=== PATIENT | female | born 1985 | race Caucasian/White ===

== ENCOUNTER 2017-04-22 13:49 | Inpatient (IN) | payer BC ==
[2017-04-22] MEDS ORDERED: Ondansetron 4 MG/2 ML SDV IVPUSH PRN (14:22)
[2017-04-22] MEDS ORDERED: Sodium Chloride 0.9% 10 ML Syringe FLUSH PRN (14:22)
[2017-04-22] MEDS ORDERED: Lactated Ringers 1,000 ML IV SCH (14:30)
[2017-04-22] MEDS ORDERED: Oxytocin/Lactated Ringers 10 UNIT/1,000 ML BAG IV SCH ×2 (14:30→21:30)
[2017-04-22] MEDS ORDERED: ceFAZolin 2 GM in Premix Bag 1 BAG IV ONE (14:30)
--- NOTE | 2017-04-22 14:42 | PCM.LDHP ---
L&D History of Present Illness - General Date of Service: 04/22/17 Admit Problem/Dx: Patient Status Order with Admit Dx/Problem 04/22/17 14:22 Patient Status [ADT] Routine Admission Diagnosis/Problem Admission Diagnosis/Problem Normal Source of Information: Patient History Limitations: Reports: No Limitations - History of Present Illness Introduction:: Patient is a 32 y/o at 39 6/7 wks who presents for SROM. States that at 1130 this morning she had gross ROM. Fluid was clear. Mild contractions since that time. No other issues or concerns. - Related Data Allergies/Adverse Reactions: Allergies Allergy/AdvReac Type Severity Reaction Status Date / Time Penicillins Allergy Intermediate Rash Verified 07/31/14 10:09 Home Medications: Home Meds Cmb#95/Iron/FA/DHA [ + Dha Combo Pack] 1 each PO DAILY [History] Acetaminophen [Tylenol] 650 mg PO Q6H PRN #50 tablet 08/02/14 [Rx] Benzocaine/Menthol [Dermoplast Pain Relief [place]] 1 spray TOP ASDIRECTED PRN #1 canister 08/02/14 [Rx] Ibuprofen [Motrin] 200 - 800 mg PO Q6H PRN #50 tablet 08/02/14 [Rx] Lanolin [Lansinoh HPA] 1 applic TOP ASDIRECTED PRN #1 crm 08/02/14 [Rx] Witch Trinh [Tucks] 1 pad TOP ASDIRECTED PRN #50 pad 08/02/14 [Rx] Past Medical History SHANK RANDER History: Reports: : 3 Para: 2 LMP (Approximate): Other OB/BYN History: First with failed forceps requiring . Second with successful - Past Surgical History Female Surgical History: Reports: Section Social & Family History - Tobacco Use Smoking Status *Q: Never Smoker Second Hand Smoke Exposure: No - Alcohol Use Alcohol Use History: No Days Per Week of Alcohol Use: 0 - Recreational Drug Use Recreational Drug Use: No H&P Review of Systems - Review of Systems: Review Of Systems: See Below General: Reports: No Symptoms Pulmonary: Reports: No Symptoms Cardiovascular: Reports: No Symptoms Gastrointestinal: Reports: No Symptoms Genitourinary: Reports: No Symptoms Musculoskeletal: Reports: No Symptoms L&D Exam - Exam Exam: See Below - OB Specific Contraction Intensity: Mild to Moderate Movement: Active Heart Tones: Present Heart Tones per Min: 130 Heart Rate (FHR) Variability: Moderate (6-25 bmp) Presentation: Vertex - Greenberg Score Greenberg Score Cervix Position: Posterior Greenberg Score Consistency: Soft Greenberg Score Effacement: >80% Greenberg Score Dilation: 3-4 cm Greenberg Score 's Station: -1 ,0 Greenberg Score Total: 9 - Exam General: Alert, Oriented, Cooperative Lungs: Clear to Auscultation, Normal Respiratory Effort Cardiovascular: Regular Rate, Regular Rhythm Abdomen: Soft Genitourinary: Normal external exam Extremities: Normal Inspection Skin: Warm, Dry, Intact - Problem List (1) Previous section SNOMED Code(s): 986035733 ICD Code: Z98.89 - OTHER SPECIFIED POSTPROCEDURAL STATES * DO NOT USE * Status: Acute Current Visit: No (2) SROM (spontaneous rupture of membranes) SNOMED Code(s): 070465134 ICD Code: [id number] - Status: Acute Current Visit: Yes (3) Desires (vaginal after ) trial SNOMED Code(s): 148995754, 202347918 ICD Code: O34.219 - MATERNAL CARE FOR UNSP TYPE SCAR FROM PREVIOUS DEL Status: Acute Current Visit: Yes (4) Hx successful (vaginal after ), currently SNOMED Code(s): 262454188, 602710959, 682383611 ICD Code: O34.219 - MATERNAL CARE FOR UNSP TYPE SCAR FROM PREVIOUS DEL Status: Acute Current Visit: Yes (5) GBS (group B Streptococcus carrier), +RV culture, currently SNOMED Code(s): 15879577, 739770284 ICD Code: O99.820 - STREPTOCOCCUS B CARRIER STATE COMPLICATING Status: Acute Current Visit: Yes Problem List Initiated/Reviewed/Updated: Yes Orders Last 24hrs: Active Orders 24 hr Category Date Time Status Patient Status [ADT] Routine ADT 04/22/17 14:22 Ordered Activity as Tolerated [RC] PFP Care 04/22/17 14:22 Ordered Communication Order [RC] ASDIRECTED Care 04/22/17 14:22 Ordered Heart Tones [RC] ASDIRECTED Care 04/22/17 14:22 Ordered Notify Provider [RC] PFP Care 04/22/17 14:22 Ordered Notify Provider [RC] PRN Care 04/22/17 14:22 Ordered Peripheral IV Care [RC] . DIRECTED Care 04/22/17 14:22 Ordered Vital Signs [RC] PER UNIT ROUTINE Care 04/22/17 14:22 Ordered Regular Diet [DIET] Diet 04/22/17 Lunch Ordered CBC W/O DIFF,HEMOGRAM [HEME] Routine Lab 04/22/17 14:22 Ordered TYPE AND SCREEN [BBK] Routine Lab 04/22/17 14:22 Ordered Lactated Ringers [Ringers, Lactated] 1,000 ml Med 04/22/17 14:30 Ordered IV ASDIRECTED Ondansetron [Zofran] Med 04/22/17 14:22 Ordered 4 mg IVPUSH Q4H PRN Oxytocin/Lactated Ringers [Pitocin in LR 10 Units/1,000 Med 04/22/17 14:30 Ordered ML] 10 unit in 1,000 ml IV TITRATE Sodium Chloride 0.9% [Saline Flush] Med 04/22/17 14:22 Ordered 10 ml FLUSH ASDIRECTED PRN ceFAZolin [Ancef] 1 gm Med 04/22/17 22:00 Ordered Premix Bag 1 bag IV Q8HR ceFAZolin [Ancef] 2 gm Med 04/22/17 14:22 Ordered Premix Bag 1 bag IV ONETIME Electronic Heart Tones Ext w TOCO [WOMSER] Oth 04/22/17 14:22 Ordered Routine Electronic Heart Tones Internal [WOMSER] Per Unit Oth 04/22/17 14:22 Ordered Routine Peripheral IV Insertion Adult [OM.PC] Routine Oth 04/22/17 14:22 Ordered Resuscitation Status Routine Resus Stat 04/22/17 14:22 Ordered Medication Orders Lactated Ringer's (Ringers, Lactated) 1,000 mls @ 40 mls/hr IV ASDIRECTED DEBBY Oxytocin/Lactated Ringer's (Pitocin In Lr 10 Units/1,000 Ml) 10 unit in 1,000 mls @ 500 mls/hr IV TITRATE DEBBY PRN Reason: Protocol Cefazolin Sodium/Dextrose 2 gm (/ Premix) 50 mls @ 100 mls/hr IV ONETIME ONE Stop: 04/22/17 14:59 Cefazolin Sodium/Dextrose 1 gm (/ Premix) 50 mls @ 100 mls/hr IV Q8HR DEBBY Ondansetron HCl (Zofran) 4 mg IVPUSH Q4H PRN PRN Reason: Nausea/Vomiting Sodium Chloride (Saline Flush) 10 ml FLUSH ASDIRECTED PRN PRN Reason: Keep Vein Open Assessment/Plan Comment:: 32 y/o at 39 6/7 wks who presents with SROM. Hx of and then successful . Desires again this . CBC and T&S. Start Ancef for GBS positive status. Pain management per patient preference, prefers epidural. Pitocin if needed as currently not marshal regularly. Anticipate . Pat Dykes MD
[2017-04-22] MEDS ORDERED: diphenhydrAMINE 50 MG/ML SDV IVPUSH PRN (18:55)
[2017-04-22] MEDS ORDERED: fentaNYL 100 MCG/2 ML SDV EPIDUR PRN (18:55)
[2017-04-22] MEDS ORDERED: ePHEDrine 50 MG/ML SDV IVPUSH PRN (18:55)
[2017-04-22] MEDS ORDERED: Bupivacaine/fentaNYL/NS 100 ML Bag EPIDUR SCH (19:00)
[2017-04-22] MEDS ORDERED: fentaNYL 100 MCG/2 ML SDV IVPUSH ONE ×2 (19:12)
--- NOTE | 2017-04-22 19:41 | PCM.DEL ---
L & D Note - General Info Date of Service: 04/22/17 - Delivery Note Labor: spontaneous Delivery Outcome: Livebirth Delivery Method: Spontaneous Vaginal Delivery Delivery Mode: Spontaneous Presentation: Right Occiput Anterior (KALEN) Nuchal Cord: None Anesthesia Type: None Amniotic Fluid Description: Clear Episiotomy Type: None Laceration: none Placenta: intact, spontaneous Cord: 3 vessels Estimated Blood Loss: 200 Resuscitation Needed: Yes [place]: Bulb Syringe, Stimulated, Warmed, [place] Used, Warmer Used Score 1 min: 9 Score 5 min: 9 Delivery Comments (Free Text/Narrative):: Patient found to be complete and began pushing. With maternal pushing effort head delivered from an KALEN presentation. No nuchal cord present. With gentle downward traction the shoulder and body delivered. Infant placed on maternal abdomen. Cord clamped and cut. Cord blood obtained. Placenta allowed time to separate and expelled. Inspection of the perineum showed no lacerations. - Patient Data Vitals - most recent: Last Vital Signs Temp 36.6 C 04/22/17 14:22 Pulse 59 L 04/22/17 14:22 Resp 16 04/22/17 14:22 BP 116/71 04/22/17 14:22 Pulse Ox Weight - most recent: 73.482 kg Lab Results last 24 hrs: Laboratory Results - last 24 hr 04/22/17 04/22/17 Range/Units 14:30 14:30 WBC 11.34 H (3.98-10.04) K/mm3 RBC 3.83 L (3.98-5.22) M/mm3 Hgb 12.1 (11.2-15.7) gm/L Hct 36.2 (34.1-44.9) % MCV 94.5 (79.4-94.8) fl MCH 31.6 (25.6-32.2) pg MCHC 33.4 (32.2-35.5) g/dl RDW Std Deviation 42.6 (36.4-46.3) fL Plt Count 179 L (182-369) K/mm3 MPV 10.8 (9.4-12.3) fl Blood Type B POSITIVE Gel Antibody Screen Negative Med Orders - Current: Current Medications Diphenhydramine HCl (Benadryl) 25 mg IVPUSH Q6H PRN PRN Reason: Itching Ephedrine Sulfate (Ephedrine Sulfate) 5 mg IVPUSH ASDIRECTED PRN PRN Reason: HYPOTENTSION Fentanyl (Sublimaze) 100 mcg EPIDUR Q3H PRN PRN Reason: PAIN Fentanyl/Bupivacaine HCl (Fentanyl/Bupivacaine/Ns 2 Mcg-0.125% 100 Ml) 100 ml EPIDUR ASDIRECTED DEBBY Lactated Ringer's (Ringers, Lactated) 1,000 mls @ 40 mls/hr IV ASDIRECTED DEBBY Oxytocin/Lactated Ringer's (Pitocin In Lr 10 Units/1,000 Ml) 10 unit in 1,000 mls @ 500 mls/hr IV TITRATE DEBBY PRN Reason: Protocol Cefazolin Sodium/Dextrose 1 gm (/ Premix) 50 mls @ 100 mls/hr IV Q8HR DEBBY Ondansetron HCl (Zofran) 4 mg IVPUSH Q4H PRN PRN Reason: Nausea/Vomiting Sodium Chloride (Saline Flush) 10 ml FLUSH ASDIRECTED PRN PRN Reason: Keep Vein Open Last Admin: 04/22/17 15:16 Dose: 10 ml Discontinued Medications Fentanyl (Sublimaze) 25 mcg IVPUSH ONETIME ONE Stop: 04/22/17 19:13 Fentanyl (Sublimaze) 50 mcg IVPUSH ONETIME ONE Stop: 04/22/17 19:13 Cefazolin Sodium/Dextrose 2 gm (/ Premix) 50 mls @ 100 mls/hr IV ONETIME ONE Stop: 04/22/17 14:59 Last Admin: 04/22/17 14:35 Dose: 100 mls/hr - Problem List & Annotations (1) Previous section SNOMED Code(s): 767073476 Code(s): Z98.89 - OTHER SPECIFIED POSTPROCEDURAL STATES * DO NOT USE * Status: Acute Current Visit: No (2) SROM (spontaneous rupture of membranes) SNOMED Code(s): 834799074 Code(s): TCK1980 - Status: Acute Current Visit: Yes (3) Desires (vaginal after ) trial SNOMED Code(s): 814356830, 858323402 Code(s): O34.219 - MATERNAL CARE FOR UNSP TYPE SCAR FROM PREVIOUS DEL Status: Acute Current Visit: Yes (4) Hx successful (vaginal after ), currently SNOMED Code(s): 813059491, 567835952, 461820973 Code(s): O34.219 - MATERNAL CARE FOR UNSP TYPE SCAR FROM PREVIOUS DEL Status: Acute Current Visit: Yes (5) GBS (group B Streptococcus carrier), +RV culture, currently SNOMED Code(s): 67304946, 954541504 Code(s): O99.820 - STREPTOCOCCUS B CARRIER STATE COMPLICATING Status: Acute Current Visit: Yes (6) , delivered, current hospitalization SNOMED Code(s): 923055987 Code(s): O34.219 - MATERNAL CARE FOR UNSP TYPE SCAR FROM PREVIOUS DEL Status: Acute Current Visit: Yes - Problem List Review Problem List Initiated/Reviewed/Updated: Yes - My Orders Last 24 Hours: My Active Orders 04/22/17 14:22 Patient Status [ADT] Routine Activity as Tolerated [RC] PFP Communication Order [RC] ASDIRECTED Heart Tones [RC] ASDIRECTED Notify Provider [RC] PFP Notify Provider [RC] PRN Peripheral IV Care [RC] . DIRECTED Vital Signs [RC] PER UNIT ROUTINE Ondansetron [Zofran] 4 mg IVPUSH Q4H PRN Sodium Chloride 0.9% [Saline Flush] 10 ml FLUSH ASDIRECTED PRN Electronic Heart Tones Ext w TOCO [WOMSER] Routine Electronic Heart Tones Internal [WOMSER] Per Unit Routine Peripheral IV Insertion Adult [OM.PC] Routine Resuscitation Status Routine 04/22/17 14:30 Lactated Ringers [Ringers, Lactated] 1,000 ml IV ASDIRECTED Oxytocin/Lactated Ringers [Pitocin in LR 10 Units/1,000 ML] 10 unit in 1,000 ml IV TITRATE 04/22/17 19:23 Patient Status Manage Transfer [TRANSFER] Routine 04/22/17 22:00 ceFAZolin [Ancef] 1 gm Premix Bag 1 bag IV Q8HR 04/22/17 Lunch Regular Diet [DIET] - Assessment Assessment:: 32 y/o G3 now P3003 PPD#0 from at 39 6/7 wks - Plan Plan:: * Routine cares * Encourage breast feeding * Discharge home in 1-2 days Pat Dykes MD
[2017-04-22] MEDS ORDERED: Acetaminophen 325 MG Tab PO PRN (21:48)
[2017-04-22] MEDS ORDERED: Ibuprofen 600 MG Tab PO PRN (21:48)
[2017-04-22] MEDS ORDERED: Benzocaine/Menthol 20%-0.5% Spray 56 GM Canister TOP PRN (21:48)
[2017-04-22] MEDS ORDERED: Witch Hazel Medicated Pads 100/Jar TOP PRN (21:48)
[2017-04-22] MEDS ORDERED: Lanolin 100% Cream 7 GM Tube TOP PRN (21:48)
[2017-04-22] MEDS ORDERED: Docusate Sodium 100 MG Cap PO PRN (21:48)
[2017-04-22] MEDS ORDERED: ceFAZolin 1 GM in Premix Bag 1 BAG IV SCH (22:00)
--- NOTE | 2017-04-23 07:31 | PCM.PNPP ---
- General Info Date of Service: 04/23/17 Functional Status: Reports: pain controlled, tolerating diet, ambulating, urinating - Review of Systems General: Reports: No Symptoms Pulmonary: Reports: no symptoms Cardiovascular: Reports: No Symptoms Gastrointestinal: Reports: No symptoms Genitourinary: Reports: other (Had a few larger clots last night after delivery. Now reasonable to patient, has changed pad twice since about midnight ) - Patient Data Vital Signs - most recent: Last Vital Signs Temp 36.4 C 04/22/17 22:18 Pulse 56 L 04/22/17 22:18 Resp 18 04/22/17 22:18 BP 112/58 L 04/22/17 22:18 Pulse Ox 99 04/22/17 22:18 Weight - most recent: 73.482 kg I&O - last 24 hours: Intake & Output 04/22/17 04/23/17 04/23/17 22:59 06:59 14:59 Intake Total 2700 Balance 2700 Lab Results - last 24 hrs: Laboratory Results - last 24 hr 04/22/17 04/22/17 Range/Units 14:30 14:30 WBC 11.34 H (3.98-10.04) K/mm3 RBC 3.83 L (3.98-5.22) M/mm3 Hgb 12.1 (11.2-15.7) gm/L Hct 36.2 (34.1-44.9) % MCV 94.5 (79.4-94.8) fl MCH 31.6 (25.6-32.2) pg MCHC 33.4 (32.2-35.5) g/dl RDW Std Deviation 42.6 (36.4-46.3) fL Plt Count 179 L (182-369) K/mm3 MPV 10.8 (9.4-12.3) fl Blood Type B POSITIVE Gel Antibody Screen Negative Med Orders - Current: Current Medications Acetaminophen (Tylenol) 650 mg PO Q4H PRN PRN Reason: mild pain or fever Benzocaine/Menthol (Dermoplast Pain Relief [facility] [facility]) 0 gm TOP ASDIRECTED PRN PRN Reason: Perineal Comfort Measure Docusate Sodium (Colace) 100 mg PO BID PRN PRN Reason: Constipation Emollient Ointment (Lansinoh Hpa) 0 gm TOP ASDIRECTED PRN PRN Reason: Sore Nipples Oxytocin/Lactated Ringer's (Pitocin In Lr 10 Units/1,000 Ml) 10 unit in 1,000 mls @ 500 mls/hr IV ASDIRECTED DEBBY PRN Reason: Protocol Last Admin: 04/22/17 22:02 Dose: 500 mls/hr Ibuprofen (Motrin) 600 mg PO Q6H PRN PRN Reason: Mild pain or fever Witch Trinh (Tucks) 1 pad TOP ASDIRECTED PRN PRN Reason: Hemorrhoid pain Discontinued Medications Diphenhydramine HCl (Benadryl) 25 mg IVPUSH Q6H PRN PRN Reason: Itching Ephedrine Sulfate (Ephedrine Sulfate) 5 mg IVPUSH ASDIRECTED PRN PRN Reason: HYPOTENTSION Fentanyl (Sublimaze) 100 mcg EPIDUR Q3H PRN PRN Reason: PAIN Fentanyl (Sublimaze) 25 mcg IVPUSH ONETIME ONE Stop: 04/22/17 19:13 Last Admin: 04/22/17 22:44 Dose: Not Given Fentanyl (Sublimaze) 50 mcg IVPUSH ONETIME ONE Stop: 04/22/17 19:13 Last Admin: 04/22/17 19:29 Dose: 50 mcg Fentanyl/Bupivacaine HCl (Fentanyl/Bupivacaine/Ns 2 Mcg-0.125% 100 Ml) 100 ml EPIDUR ASDIRECTED [facility] Lactated Ringer's (Ringers, Lactated) 1,000 mls @ 40 mls/hr IV ASDIRECTED [facility] Oxytocin/Lactated Ringer's (Pitocin In Lr 10 Units/1,000 Ml) 10 unit in 1,000 mls @ 500 mls/hr IV TITRATE DEBBY PRN Reason: Protocol Cefazolin Sodium/Dextrose 2 gm (/ Premix) 50 mls @ 100 mls/hr IV ONETIME ONE Stop: 04/22/17 14:59 Last Admin: 04/22/17 14:35 Dose: 100 mls/hr Cefazolin Sodium/Dextrose 1 gm (/ Premix) 50 mls @ 100 mls/hr IV Q8HR DEBBY Ondansetron HCl (Zofran) 4 mg IVPUSH Q4H PRN PRN Reason: Nausea/Vomiting Sodium Chloride (Saline Flush) 10 ml FLUSH ASDIRECTED PRN PRN Reason: Keep Vein Open Last Admin: 04/22/17 15:16 Dose: 10 ml - Interaction Disposition, : in Room with Family Interaction: Holding Infant Infant Feeding: Attempted ; Nursed Fair/Poor (Some discomfort with feeding) Support Person: Significant Other - Recovery Exam Fundal Tone: Firm Fundal Level: 1 Fingerbreadths Below Umbilicus Fundal Placement: Midline Lochia Amount: Small Lochia Color: Rubra/Red Bladder Status: Voiding - Exam General: alert, oriented, cooperative Abdomen: soft, no tenderness Extremities: no edema Skin: warm, dry, intact - Problem List & Annotations (1) Previous section SNOMED Code(s): 645946336 Code(s): Z98.89 - OTHER SPECIFIED POSTPROCEDURAL STATES * DO NOT USE * Status: Acute Current Visit: No (2) SROM (spontaneous rupture of membranes) SNOMED Code(s): 057056659 Code(s): NBR9356 - Status: Acute Current Visit: Yes (3) Desires (vaginal after ) trial SNOMED Code(s): 220158614, 902750401 Code(s): O34.219 - MATERNAL CARE FOR UNSP TYPE SCAR FROM PREVIOUS DEL Status: Acute Current Visit: Yes (4) Hx successful (vaginal after ), currently SNOMED Code(s): 033017150, 465628282, 804353354 Code(s): O34.219 - MATERNAL CARE FOR UNSP TYPE SCAR FROM PREVIOUS DEL Status: Acute Current Visit: Yes (5) GBS (group B Streptococcus carrier), +RV culture, currently SNOMED Code(s): 23118758, 619849294 Code(s): O99.820 - STREPTOCOCCUS B CARRIER STATE COMPLICATING Status: Acute Current Visit: Yes (6) , delivered, current hospitalization SNOMED Code(s): 969545892 Code(s): O34.219 - MATERNAL CARE FOR UNSP TYPE SCAR FROM PREVIOUS DEL Status: Acute Current Visit: Yes - Problem List Review Problem List Initiated/Reviewed/Updated: Yes - My Orders Last 24 Hours: My Active Orders 04/22/17 14:22 Peripheral IV Care [RC] . DIRECTED Resuscitation Status Routine 04/22/17 21:30 Oxytocin/Lactated Ringers [Pitocin in LR 10 Units/1,000 ML] 10 unit in 1,000 ml IV ASDIRECTED 04/22/17 21:48 Activity as Tolerated [RC] .PRN Vital Signs [RC] 04,12,20 Acetaminophen [Tylenol] 650 mg PO Q4H PRN Benzocaine/Menthol [Dermoplast Pain Relief [facility]] See Dose Instructions TOP ASDIRECTED PRN Docusate Sodium [Colace] 100 mg PO BID PRN Ibuprofen [Motrin] 600 mg PO Q6H PRN Lanolin [Lansinoh HPA] See Dose Instructions TOP ASDIRECTED PRN Witch Trinh [Tucks] 1 pad TOP ASDIRECTED PRN Assess Lochia [WOMSER] Per Unit Routine Assess Uterine Involution [WOMSER] Per Unit Routine Breast Pump [WOMSER] Per Unit Routine Heat Therapy [OM.PC] PRN Ice Therapy [OM.PC] Per Unit Routine Perineal Care [OM.PC] Per Unit Routine Peripheral IV Discontinue [OM.PC] Routine Sitz Bath [OM.PC] Per Unit Routine 04/22/17 Dinner Regular Diet [DIET] 04/23/17 21:48 Heat Therapy [OM.PC] PRN - Assessment Assessment:: 32 y/o G3 now P3003 PPD#1 from at 39 6/7 wks - Plan Plan:: * Routine cares * Encourage breast feeding * Discharge home tomorrow Pat Dykes MD
--- NOTE | 2017-04-24 06:51 | PCM.DCSUM1 ---
Discharge Summary - Discharge Data Discharge Date: 04/24/17 Discharge Disposition: Home, Self-Care 01 Condition: Good - Discharge Diagnosis/Problem(s) (1) Previous section SNOMED Code(s): 910824157 ICD Code: Z98.89 - OTHER SPECIFIED POSTPROCEDURAL STATES * DO NOT USE * Status: Acute Current Visit: No (2) SROM (spontaneous rupture of membranes) SNOMED Code(s): 673714389 ICD Code: VBM0481 - Status: Acute Current Visit: Yes (3) Desires (vaginal after ) trial SNOMED Code(s): 301759565, 942330469 ICD Code: O34.219 - MATERNAL CARE FOR UNSP TYPE SCAR FROM PREVIOUS DEL Status: Acute Current Visit: Yes (4) Hx successful (vaginal after ), currently SNOMED Code(s): 089309220, 346514246, 535734691 ICD Code: O34.219 - MATERNAL CARE FOR UNSP TYPE SCAR FROM PREVIOUS DEL Status: Acute Current Visit: Yes (5) GBS (group B Streptococcus carrier), +RV culture, currently SNOMED Code(s): 58578388, 598818865 ICD Code: O99.820 - STREPTOCOCCUS B CARRIER STATE COMPLICATING Status: Acute Current Visit: Yes (6) , delivered, current hospitalization SNOMED Code(s): 484891486 ICD Code: O34.219 - MATERNAL CARE FOR UNSP TYPE SCAR FROM PREVIOUS DEL Status: Acute Current Visit: Yes - Patient Summary/Data Complications: None Consults: None Recommended Follow-up Testing/Procedures: Follow up in 5-6 weeks for check Hospital Course: Patient is a 32 y/o who presented at 39 6/7 wks with SROM. History of c -section with her first and successful with her second . Desires again this . She progressed well without the need for augmentation and underwent an uncomplicated . See delivery note for full details. she did well and was discharged home on PPD#2 - Patient Instructions Diet: Regular Diet as Tolerated Activity: As Tolerated Activity, Other: Pelvic Rest for 6 weeks Driving: May Drive Today Showering/Bathing: May Shower Showering/Bathing, Other: May Bathe Notify Provider of: Fever, Increased Pain, Swelling and Redness, Drainage, Nausea and/or Vomiting - Discharge Plan Home Medications: Home Meds Cmb#95/Iron/FA/DHA [ + Dha Combo Pack] 1 each PO DAILY [History] Docusate Sodium [Colace] 100 mg PO BID PRN #0 cap 04/24/17 [Rx] Ibuprofen [IJD: Ibuprofen] 600 mg PO Q6H PRN #0 tablet 04/24/17 [Rx] Patient Handouts: Home Care Instructions for Mom Referrals: Pat Dykes MD [Primary Care Provider] - (5-6 weeks for check) - Discharge Summary/Plan Comment DC Time >30 min.: No - Patient Data Vitals - Most Recent: Last Vital Signs Temp 36.4 C 04/24/17 05:46 Pulse 57 L 04/24/17 05:46 Resp 16 04/23/17 21:59 BP 105/68 04/24/17 05:46 Pulse Ox 98 04/24/17 05:46 Weight - Most Recent: 73.482 kg I&O - Last 24 hours: Intake & Output 04/23/17 04/23/17 04/24/17 14:59 22:59 06:59 Intake Total 240 Balance 240 Med Orders - Current: Current Medications Acetaminophen (Tylenol) 650 mg PO Q4H PRN PRN Reason: mild pain or fever Benzocaine/Menthol (Dermoplast Pain Relief [place]) 0 gm TOP ASDIRECTED PRN PRN Reason: Perineal Comfort Measure Docusate Sodium (Colace) 100 mg PO BID PRN PRN Reason: Constipation Emollient Ointment (Lansinoh Hpa) 0 gm TOP ASDIRECTED PRN PRN Reason: Sore Nipples Oxytocin/Lactated Ringer's (Pitocin In Lr 10 Units/1,000 Ml) 10 unit in 1,000 mls @ 500 mls/hr IV ASDIRECTED DEBBY PRN Reason: Protocol Last Admin: 04/22/17 22:02 Dose: 500 mls/hr Ibuprofen (Motrin) 600 mg PO Q6H PRN PRN Reason: Mild pain or fever Witch Trinh (Tucks) 1 pad TOP ASDIRECTED PRN PRN Reason: Hemorrhoid pain Discontinued Medications Diphenhydramine HCl (Benadryl) 25 mg IVPUSH Q6H PRN PRN Reason: Itching Ephedrine Sulfate (Ephedrine Sulfate) 5 mg IVPUSH ASDIRECTED PRN PRN Reason: HYPOTENTSION Fentanyl (Sublimaze) 100 mcg EPIDUR Q3H PRN PRN Reason: PAIN Fentanyl (Sublimaze) 25 mcg IVPUSH ONETIME ONE Stop: 04/22/17 19:13 Last Admin: 04/22/17 22:44 Dose: Not Given Fentanyl (Sublimaze) 50 mcg IVPUSH ONETIME ONE Stop: 04/22/17 19:13 Last Admin: 04/22/17 19:29 Dose: 50 mcg Fentanyl/Bupivacaine HCl (Fentanyl/Bupivacaine/Ns 2 Mcg-0.125% 100 Ml) 100 ml EPIDUR ASDIRECTED DEBBY Lactated Ringer's (Ringers, Lactated) 1,000 mls @ 40 mls/hr IV ASDIRECTED DEBBY Oxytocin/Lactated Ringer's (Pitocin In Lr 10 Units/1,000 Ml) 10 unit in 1,000 mls @ 500 mls/hr IV TITRATE DEBBY PRN Reason: Protocol Cefazolin Sodium/Dextrose 2 gm (/ Premix) 50 mls @ 100 mls/hr IV ONETIME ONE Stop: 04/22/17 14:59 Last Admin: 04/22/17 14:35 Dose: 100 mls/hr Cefazolin Sodium/Dextrose 1 gm (/ Premix) 50 mls @ 100 mls/hr IV Q8HR DEBBY Ondansetron HCl (Zofran) 4 mg IVPUSH Q4H PRN PRN Reason: Nausea/Vomiting Sodium Chloride (Saline Flush) 10 ml FLUSH ASDIRECTED PRN PRN Reason: Keep Vein Open Last Admin: 04/22/17 15:16 Dose: 10 ml *Q Meaningful Use (DIS) - VTE *Q VTE Criteria *Q: - Stroke *Q Stroke Criteria *Q: - AMI *Q AMI Criteria *Q:
--- NOTE | 2017-04-24 06:51 | PCM.PNPP ---
- General Info Date of Service: 04/24/17 Functional Status: Reports: pain controlled, tolerating diet, ambulating, urinating - Review of Systems General: Reports: No Symptoms Pulmonary: Reports: no symptoms Cardiovascular: Reports: No Symptoms Gastrointestinal: Reports: No symptoms Genitourinary: Reports: no symptoms - Patient Data Vital Signs - most recent: Last Vital Signs Temp 36.4 C 04/24/17 05:46 Pulse 57 L 04/24/17 05:46 Resp 16 04/23/17 21:59 BP 105/68 04/24/17 05:46 Pulse Ox 98 04/24/17 05:46 Weight - most recent: 73.482 kg I&O - last 24 hours: Intake & Output 04/23/17 04/23/17 04/24/17 14:59 22:59 06:59 Intake Total 240 Balance 240 Med Orders - Current: Current Medications Acetaminophen (Tylenol) 650 mg PO Q4H PRN PRN Reason: mild pain or fever Benzocaine/Menthol (Dermoplast Pain Relief [place]) 0 gm TOP ASDIRECTED PRN PRN Reason: Perineal Comfort Measure Docusate Sodium (Colace) 100 mg PO BID PRN PRN Reason: Constipation Emollient Ointment (Lansinoh Hpa) 0 gm TOP ASDIRECTED PRN PRN Reason: Sore Nipples Oxytocin/Lactated Ringer's (Pitocin In Lr 10 Units/1,000 Ml) 10 unit in 1,000 mls @ 500 mls/hr IV ASDIRECTED DEBBY PRN Reason: Protocol Last Admin: 04/22/17 22:02 Dose: 500 mls/hr Ibuprofen (Motrin) 600 mg PO Q6H PRN PRN Reason: Mild pain or fever Witch Trinh (Tucks) 1 pad TOP ASDIRECTED PRN PRN Reason: Hemorrhoid pain Discontinued Medications Diphenhydramine HCl (Benadryl) 25 mg IVPUSH Q6H PRN PRN Reason: Itching Ephedrine Sulfate (Ephedrine Sulfate) 5 mg IVPUSH ASDIRECTED PRN PRN Reason: HYPOTENTSION Fentanyl (Sublimaze) 100 mcg EPIDUR Q3H PRN PRN Reason: PAIN Fentanyl (Sublimaze) 25 mcg IVPUSH ONETIME ONE Stop: 04/22/17 19:13 Last Admin: 04/22/17 22:44 Dose: Not Given Fentanyl (Sublimaze) 50 mcg IVPUSH ONETIME ONE Stop: 04/22/17 19:13 Last Admin: 04/22/17 19:29 Dose: 50 mcg Fentanyl/Bupivacaine HCl (Fentanyl/Bupivacaine/Ns 2 Mcg-0.125% 100 Ml) 100 ml EPIDUR ASDIRECTED DEBBY Lactated Ringer's (Ringers, Lactated) 1,000 mls @ 40 mls/hr IV ASDIRECTED DEBBY Oxytocin/Lactated Ringer's (Pitocin In Lr 10 Units/1,000 Ml) 10 unit in 1,000 mls @ 500 mls/hr IV TITRATE DEBBY PRN Reason: Protocol Cefazolin Sodium/Dextrose 2 gm (/ Premix) 50 mls @ 100 mls/hr IV ONETIME ONE Stop: 04/22/17 14:59 Last Admin: 04/22/17 14:35 Dose: 100 mls/hr Cefazolin Sodium/Dextrose 1 gm (/ Premix) 50 mls @ 100 mls/hr IV Q8HR DEBBY Ondansetron HCl (Zofran) 4 mg IVPUSH Q4H PRN PRN Reason: Nausea/Vomiting Sodium Chloride (Saline Flush) 10 ml FLUSH ASDIRECTED PRN PRN Reason: Keep Vein Open Last Admin: 04/22/17 15:16 Dose: 10 ml - Infant Interaction Infant Disposition, : [place] in Room with Family Infant Interaction: Holding Infant Feeding: Attempted ; Nursed Fair/Poor (Some discomfort with feeding) Support Person: Significant Other - Recovery Exam Fundal Tone: Firm Fundal Level: 2 Fingerbreadths Below Umbilicus Fundal Placement: Midline Lochia Amount: Small, Clots/Tissue Present Lochia Color: Rubra/Red Episiotomy/Laceration: None Bladder Status: Voiding - Exam General: alert, oriented, cooperative Abdomen: soft, no tenderness Extremities: no edema Skin: warm, dry, intact - Problem List & Annotations (1) Previous section SNOMED Code(s): 298279072 Code(s): Z98.89 - OTHER SPECIFIED POSTPROCEDURAL STATES * DO NOT USE * Status: Acute Current Visit: No (2) SROM (spontaneous rupture of membranes) SNOMED Code(s): 463799072 Code(s): MYY8884 - Status: Acute Current Visit: Yes (3) Desires (vaginal after ) trial SNOMED Code(s): 642052642, 185045911 Code(s): O34.219 - MATERNAL CARE FOR UNSP TYPE SCAR FROM PREVIOUS DEL Status: Acute Current Visit: Yes (4) Hx successful (vaginal after ), currently SNOMED Code(s): 666502822, 059143275, 613888492 Code(s): O34.219 - MATERNAL CARE FOR UNSP TYPE SCAR FROM PREVIOUS DEL Status: Acute Current Visit: Yes (5) GBS (group B Streptococcus carrier), +RV culture, currently SNOMED Code(s): 92521257, 452765277 Code(s): O99.820 - STREPTOCOCCUS B CARRIER STATE COMPLICATING Status: Acute Current Visit: Yes (6) , delivered, current hospitalization SNOMED Code(s): 367219124 Code(s): O34.219 - MATERNAL CARE FOR UNSP TYPE SCAR FROM PREVIOUS DEL Status: Acute Current Visit: Yes - Problem List Review Problem List Initiated/Reviewed/Updated: Yes - My Orders Last 24 Hours: My Active Orders 04/23/17 21:48 Heat Therapy [OM.PC] PRN 04/24/17 06:50 Ready for Discharge [RC] PER UNIT ROUTINE - Assessment Assessment:: 32 y/o G3 now P3003 PPD#2 from at 39 6/7 wks - Plan Plan:: * Routine cares * Encourage breast feeding * Discharge home today Pta Dykes MD
[2017-04-24 09:22] VITALS: BP 107/55
== END 2017-04-24 13:55 | disposition home or self-care (01) | DRG 560 ==
LOC: JD.OBCHECK 13:49 → JD.OB 13:49 → JD.OBCHECK 14:22 → OBSVTOIN 18:59 → JD.OB 18:59
PROVIDERS: ADMIT Obstetrics & Gynecology; ATTEND Obstetrics & Gynecology
PROC: 10E0XZZ Delivery of Products of Conception, External Approach (ICD-10-PCS; principal; 2017-04-22)
DX: O42.92 Full-term premature rupture of membranes, unspecified as to length of time between rupture and onset of labor (principal); Z3A.40 40 weeks gestation of pregnancy; Z37.0 Single live birth; Z88.0 Allergy status to penicillin; O34.211 Maternal care for low transverse scar from previous cesarean delivery; N85.8 Other specified noninflammatory disorders of uterus; O99.820 Streptococcus B carrier state complicating pregnancy
CPT/HCPCS: 36415; 85027; 86850; 86900; 86901; J0690; J2590; J3010; J7050

== ENCOUNTER 2023-09-20 02:15 | Inpatient (IN) | payer BC ==
[~2023-09-20 02:15] MED LIST: Lidocaine 1% 10 ML MDV ONE
[2023-09-20] MEDS ORDERED: Ondansetron 4 MG/2 ML SDV IVPUSH PRN (02:25)
[2023-09-20] MEDS ORDERED: Lidocaine 1% 50 ML MDV INJECT PRN (02:25)
[2023-09-20] MEDS ORDERED: Sodium Chloride 0.9% 10 ML Syringe FLUSH PRN (02:25)
[2023-09-20] MEDS ORDERED: Nalbuphine HCl 10 MG/ 1ML Amp IVPUSH PRN (02:25)
[2023-09-20 02:44] LABS: BASOPHILS PERCENT AUTO 0.4 % (0.0-1.0); EOSINOPHILS ABSOLUTE AUTO 0.1 K/mm3 (0.0-0.4); EOSINOPHILS PERCENT AUTO 1.1 % (0.0-6.0); HEMATOCRIT 33.6 % (37.0-47.0); HEMOGLOBIN 11.6 gm/dl (12.0-16.0); IMMATURE GRAN ABSOLUTE AUTO 0.03 K/mm3 (0.00-0.05); IMMATURE GRAN PERCENT AUTO 0.3 % (0.0-0.4); LYMPHOCYTES ABSOLUTE AUTO 2.7 K/mm3 (1.0-4.8); LYMPHOCYTES PERCENT AUTO 28.7 % (24.0-44.0); MEAN CORPUSCULAR HEMOGLOBIN 33.2 pg (28.0-32.0); MEAN CORPUSCULAR HGB CONC 34.5 g/dl (32.0-36.0); MEAN CORPUSCULAR VOLUME 96.3 fl (83.0-99.0); MEAN PLATELET VOLUME 11.1 fl (9.4-12.3); MONOCYTES ABSOLUTE AUTO 0.8 K/mm3 (0.0-0.8); MONOCYTES PERCENT AUTO 8.2 % (0.0-8.0); NEUTROPHILS ABSOLUTE AUTO 5.8 K/mm3 (1.8-7.7); NEUTROPHILS PERCENT AUTO 61.3 % (41.0-71.0); PLATELET COUNT,PLT 170 K/mm3 (150-400); RED BLOOD CELL COUNT 3.49 M/mm3 (4.10-5.30); WHITE BLOOD CELL COUNT,WBC 9.43 K/mm3 (3.9-11.3)
[2023-09-20] MEDS: Lactated Ringers 1,000 ML IV SCH ×3 (04:28→10:32)
[2023-09-20] MEDS ORDERED: fentaNYL 100 MCG/2 ML SDV EPIDUR PRN (04:46)
[2023-09-20] MEDS ORDERED: ePHEDrine 50 MG/ML SDV IVPUSH PRN (04:46)
[2023-09-20] MEDS ORDERED: diphenhydrAMINE 50 MG/ML SDV IVPUSH PRN (04:46)
[2023-09-20] MEDS: Bupivacaine/fentaNYL/NS 100 ML Bag EPIDUR PRN ×2 (05:29→12:46)
[2023-09-20] MEDS ORDERED: Sodium Chloride 0.9% 10 ML Syringe FLUSH SCH (09:00)
[2023-09-20] MEDS ORDERED: Oxytocin/Lactated Ringers 30 UNIT/500 ML BAG IV SCH ×2 (12:45→16:30)
[2023-09-20] MEDS ORDERED: Ibuprofen 600 MG Tab PO PRN (17:59)
[2023-09-20] MEDS ORDERED: Benzocaine/Menthol 20%-0.5% Spray 78 GM Cannister TOP PRN (17:59)
[2023-09-20] MEDS ORDERED: Witch Hazel Medicated Pads 40/Jar TOP PRN (17:59)
[2023-09-20] MEDS ORDERED: Acetaminophen 325 MG Tab PO PRN (17:59)
[2023-09-20] MEDS ORDERED: Docusate Sodium 100 MG Cap PO PRN (17:59)
[2023-09-22] MEDS ORDERED: Measles, Mumps & Rubella Vaccine 0.5 ML SDV SUBCUT ONE (08:42)
[2023-09-22 11:35] VITALS: BP 123/77; PULSE 67
== END 2023-09-22 10:55 | disposition home or self-care (01) | DRG 560 ==
LOC: JD.OBCHECK 02:15 → JD.OB 02:16 → JD.OBCHECK 02:24 → JD.OB 02:25 → OBSVTOIN 16:59 → JD.OB 17:00
PROVIDERS: ADMIT Obstetrics & Gynecology; ATTEND Obstetrics & Gynecology
PROC: 10D07Z6 Extraction of Products of Conception, Vacuum, Via Natural or Artificial Opening (ICD-10-PCS; principal; 2023-09-20)
PROC: 3E0R3BZ Introduction of Anesthetic Agent into Spinal Canal, Percutaneous Approach (ICD-10-PCS; 2023-09-20)
PROC: 00HU33Z Insertion of Infusion Device into Spinal Canal, Percutaneous Approach (ICD-10-PCS; 2023-09-20)
DX: O42.02 Full-term premature rupture of membranes, onset of labor within 24 hours of rupture (principal); O75.81 Maternal exhaustion complicating labor and delivery; Z3A.39 39 weeks gestation of pregnancy; Z37.0 Single live birth; O69.81X0 Labor and delivery complicated by cord around neck, without compression, not applicable or unspecified; O34.219 Maternal care for unspecified type scar from previous cesarean delivery; Z88.0 Allergy status to penicillin
CPT/HCPCS: 36415; 51701; 51702; 59025; 59409; 85025; 86592; 86850; 86900; 86901; C1758; J3010; J3490; J7120; J7999